=== PATIENT | male | born 1980 | race Caucasian/White ===

== ENCOUNTER 2017-01-31 07:25 | Emergency (ER) | payer BC, MEDICARE ==
[~2017-01-31] VITALS: Ht 190.5 cm; Wt 97.5 kg
[2017-01-31] MEDS ORDERED: CYCLOBENZAPRINE HCL 10 MG TABLET PO ONE (08:15)
[2017-01-31] MEDS ORDERED: KETOROLAC TROMETHAMINE 60 MG/2 ML VIAL IM ONE (08:15)
[2017-01-31 08:54] VITALS: BP 122/81
== END 2017-01-31 09:14 | disposition home or self-care (01) ==
LOC: EMS 07:27
DX: S39.012A Strain of muscle, fascia and tendon of lower back, initial encounter (principal); M79.1 Myalgia; F12.90 Cannabis use, unspecified, uncomplicated
CPT/HCPCS: 96372; 99283; J1885

== ENCOUNTER 2019-09-11 15:42 | Emergency (ER) | payer BC, MEDICAID ==
[~2019-09-11] VITALS: Ht 188 cm; Wt 92.7 kg
[2019-09-11] MEDS ORDERED: CefTRIAXone SODIUM 1 GM/VIAL IM ONE (17:45)
[2019-09-11] MEDS ORDERED: LIDOCAINE/PF 1% 2 ML VIAL IM ONE (17:45)
[2019-09-11] MEDS ORDERED: SULFAMETHOX/TRIMETH DS 800-160 MG/TABLET PO ONE (17:45)
[2019-09-11] MEDS ORDERED: CEPHALEXIN MONOHYDRATE 500 MG CAPSULE PO ONE (17:45)
[2019-09-11 18:42] VITALS: BP 115/80
== END 2019-09-11 18:42 | disposition home or self-care (01) ==
LOC: EMS 15:43
DX: L03.114 Cellulitis of left upper limb (principal); F12.90 Cannabis use, unspecified, uncomplicated
CPT/HCPCS: 96372; 99283; J0696; J3490